=== PATIENT | female | born 1990 | race Caucasian/White ===

== ENCOUNTER 2025-03-29 11:16 | Outpatient (CLI) | payer OTHER, SELFPAY ==
--- NOTE | 2025-03-29 11:30 | CRLHL7_ITS ---
For Patients: As a result of the Cures Act, medical imaging exams and procedure reports are released immediately into your electronic medical record. You may view this report before your referring provider. If you have questions, please contact your health care provider. OB ULTRASOUND INDICATION: Dating. TECHNIQUE: Real time grayscale imaging of the fetus was performed. Transvaginal imaging performed to better evaluate the endometrial stripe and ovaries. LMP: 02/02/2025. VALARIE by LMP: 11/09/2025. GA: 7 w, 6 d. Previous US: No. CRL: 1.0 cm. 7 w 0 d. VALARIE: 11/15/2025. FHR: 147 BPM. Gestational sac: 2.3 cm. Appears within normal limits. Yolk sac: 3.5 mm. Appears within normal limits. Right ovary: Within normal limits. 3.4 x 2.6 x 2.5 cm. CL. Left ovary: Within normal limits. 2.2 x 1.4 x 1.2 cm. IMPRESSION: Single living intrauterine measuring 7 weeks 0 days and sonographic due date 11/15/2025. Roney Blake M.D. Diagnostic Radiologist [email or web address]/Dictated by: Roney Blake MD @ 03/29/2025 3:43:00 PM (Electronically Signed)
== END 2025-03-29 11:17 | disposition home or self-care (01) ==
PROVIDERS: PCP Family Medicine; Visit Provider Advanced Practice Midwife
DX: Z34.91 Encounter for supervision of normal pregnancy, unspecified, first trimester (principal); Z3A.01 Less than 8 weeks gestation of pregnancy
CPT/HCPCS: 76817; 82565; 82570; 83021; 84156; 84450; 84460; 84520; 86592; 86703; 86704; 86706; 86762; 86787; 86803; 86850; 86900; 86901; 87086; 87340

== ENCOUNTER 2025-04-01 11:07 | Outpatient (CLI) | payer OTHER, SELFPAY | END 2025-04-01 11:08 | disposition home or self-care (01) | LOC: NFLDREF 04-04 15:59 | PROVIDERS: PCP Family Medicine; Referring Provider Family Medicine; Visit Provider Advanced Practice Midwife | DX: Z34.81 Encounter for supervision of other normal pregnancy, first trimester (principal) | CPT/HCPCS: 82570; 84156 ==

== ENCOUNTER 2025-04-26 10:44 | Outpatient (CLI) | payer OTHER, SELFPAY | END 2025-04-26 10:45 | disposition home or self-care (01) | LOC: NFLDREF 04-28 17:24 | PROVIDERS: PCP Family Medicine; Referring Provider Family Medicine; Visit Provider Obstetrics & Gynecology | DX: Z34.81 Encounter for supervision of other normal pregnancy, first trimester (principal) | CPT/HCPCS: 87491; 87591 ==

== ENCOUNTER 2025-06-20 10:05 | Outpatient (CLI) | payer OTHER, SELFPAY | END 2025-06-20 10:06 | disposition home or self-care (01) | LOC: NFLDREF 06-23 16:47 | PROVIDERS: PCP Family Medicine; Referring Provider Family Medicine; Visit Provider Obstetrics & Gynecology | DX: O12.10 Gestational proteinuria, unspecified trimester (principal) | CPT/HCPCS: 82570; 84156 ==

== ENCOUNTER 2025-08-24 10:01 | Outpatient (CLI) | payer OTHER, SELFPAY ==
--- NOTE | 2025-08-24 10:15 | CRLHL7_ITS ---
For Patients: As a result of the Cures Act, medical imaging exams and procedure reports are released immediately into your electronic medical record. You may view this report before your referring provider. If you have questions, please contact your health care provider. OB ULTRASOUND VALARIE by US: 11/15/2025. GA: 28 w, 1 d. Single. Comparison: None. INDICATION: Pre-existing hypertension. TECHNIQUE: Real time grayscale imaging of the fetus was performed. Transabdominal. CERVIX: Not visualized. POSITIONING: Vertex. AMNIOTIC FLUID: 21.3 cm RENATA. 7.5 cm. SDP (N: greater than 2 x 1 cm) PLACENTA: Technique: Transabdominal. PLACENTA POSITION: Anterior. DOPPLER: heart rate: 167 bpm. BIOMETRY: BPD: 7.3 cm. 29 w, 1 d, 72%. HC: 27.3 cm. 29 w, 6 d, 72%. AC: 27.7 cm. 31 w, 5 d, >97%. FL: 5.4 cm. 28 w, 4 d, 47%. FL/AC ratio: 19.48%. HC/AC ratio: 0.99. EFW: 1558g. Weight: 3 lbs., 7 oz. age by this US: 29 w, 6 d. VALARIE by this US: 11/03/2025. Percentile by VALARIE: >97%. IMPRESSION: 1. Sonographic gestational age 29 weeks 6 days and sonographic due date 11/03/2025. Sonographic age is 12 days ahead of the clinical age. 2. Estimated weight greater than 97th percentile. Abdominal circumference greater than 97th percentile. Roney Blake M.D. Diagnostic Radiologist [email or web address]/Dictated by: Roney Blake MD @ 08/24/2025 2:03:00 PM (Electronically Signed)
== END 2025-08-24 10:02 | disposition home or self-care (01) ==
LOC: US 10:02
PROVIDERS: PCP Family Medicine; Visit Provider Obstetrics & Gynecology
DX: O10.913 Unspecified pre-existing hypertension complicating pregnancy, third trimester (principal); O36.63X0 Maternal care for excessive fetal growth, third trimester, not applicable or unspecified; Z3A.28 28 weeks gestation of pregnancy
CPT/HCPCS: 76815

== ENCOUNTER 2025-08-24 10:47 | Outpatient (CLI) | payer OTHER, SELFPAY | END 2025-08-24 10:48 | disposition home or self-care (01) | PROVIDERS: PCP Family Medicine; Visit Provider Obstetrics & Gynecology | DX: O10.913 Unspecified pre-existing hypertension complicating pregnancy, third trimester (principal); Z3A.28 28 weeks gestation of pregnancy | CPT/HCPCS: 82570; 84156; 84450; 84460; 86592 ==

== ENCOUNTER 2025-08-25 09:35 | Outpatient (CLI) | payer OTHER, SELFPAY | END 2025-08-25 09:36 | disposition home or self-care (01) | PROVIDERS: PCP Family Medicine; Visit Provider Obstetrics & Gynecology | DX: O10.919 Unspecified pre-existing hypertension complicating pregnancy, unspecified trimester (principal) | CPT/HCPCS: 82565; 84450; 84460; 84520 ==

== ENCOUNTER 2025-08-26 15:15 | Outpatient (CLI) | payer OTHER, SELFPAY | END 2025-08-26 15:16 | disposition home or self-care (01) | LOC: NFLDREF 08-31 19:26 | PROVIDERS: PCP Family Medicine; Referring Provider Family Medicine; Visit Provider Obstetrics & Gynecology | DX: O12.13 Gestational proteinuria, third trimester (principal) | CPT/HCPCS: 82570; 84156 ==

== ENCOUNTER 2025-09-01 09:54 | Outpatient (CLI) | payer OTHER, SELFPAY | END 2025-09-01 09:55 | disposition home or self-care (01) | LOC: NFLDREF 09-07 02:06 | PROVIDERS: PCP Family Medicine; Referring Provider Family Medicine; Visit Provider Obstetrics & Gynecology | DX: O11.3 Pre-existing hypertension with pre-eclampsia, third trimester (principal) | CPT/HCPCS: 84450; 84460 ==

== ENCOUNTER 2025-09-06 10:34 | Outpatient (CLI) | payer OTHER, SELFPAY ==
--- NOTE | 2025-09-06 10:45 | CRLHL7_ITS ---
For Patients: As a result of the Century Cures Act, medical imaging exams and procedure reports are released immediately into your electronic medical record. You may view this report before your referring provider. If you have questions, please contact your health care provider. INDICATION: Pre-existing Hypertension COMPARISON: Obstetric ultrasound on 08/24/2025 TECHNIQUE: Obstetrical ultrasound, transabdominal approach, biophysical profile exam FINDINGS: number: 1 Position: Cephalic. Placental Position: Anterior. Amniotic fluid: DVP 7.1 cm. Cervix: Not visualized. heart rate: 149 bpm. BPP Score: Fluid: 2 Breathin Movement: 2 Tone: 2 Total: 6 IMPRESSION: Biophysical profile exam score of 6/8 with no points for breathing movements. Dictated by John Paul Franklin MD @ 09/06/2025 11:56:22 AM (Electronically Signed)
== END 2025-09-06 10:35 | disposition home or self-care (01) ==
LOC: US 10:36
PROVIDERS: PCP Family Medicine; Visit Provider Obstetrics & Gynecology
DX: O10.919 Unspecified pre-existing hypertension complicating pregnancy, unspecified trimester (principal)
CPT/HCPCS: 76819

== ENCOUNTER 2025-09-13 11:55 | Outpatient (CLI) | payer OTHER, SELFPAY | END 2025-09-13 11:56 | disposition home or self-care (01) | LOC: NFLDREF 09-18 01:46 | PROVIDERS: PCP Family Medicine; Referring Provider Family Medicine; Visit Provider Obstetrics & Gynecology | DX: O13.3 Gestational [pregnancy-induced] hypertension without significant proteinuria, third trimester (principal); Z3A.31 31 weeks gestation of pregnancy | CPT/HCPCS: 82565; 82570; 84156; 84450; 84460; 84520 ==

== ENCOUNTER 2025-09-13 12:03 | Outpatient (CLI) | payer OTHER, SELFPAY ==
--- NOTE | 2025-09-13 12:15 | CRLHL7_ITS ---
For Patients: As a result of the Cures Act, medical imaging exams and procedure reports are released immediately into your electronic medical record. You may view this report before your referring provider. If you have questions, please contact your health care provider. OB ULTRASOUND BIOPHYSICAL PROFILE CLINICAL HISTORY: Pre-existing hypertension w/pre-eclampsia. TECHNIQUE: Real time lira scale imaging of the fetus was performed. Transabdominal imaging performed. COMPARISON: 09/06/2025, 08/24/2025, 03/29/2025. FINDINGS: VALARIE by US: 11/15/2025. GA: 31 weeks 0 days. Gestation: Single. Cervix: Not visualized. Positioning: Vertex. Amniotic Fluid: 6.0 cm SDP. BIOPHYSICAL PROFILE Gross Body Movements: 2 Tone: 2 Respiratory Activity: 2 Amniotic Fluid SDP: 2 Total Score: 8 Placenta: Technique: TA. Placenta Position: Anterior. Dopplers: Heart Rate: 155 bpm. IMPRESSION: Normal biophysical profile score of 8/8. Roney Blake M.D. Diagnostic Radiologist [email or web address] Transcribed: 3:40 pm DW/Dictated by: Roney Blake MD @ 09/13/2025 12:51:00 PM (Electronically Signed)
== END 2025-09-13 12:04 | disposition home or self-care (01) ==
LOC: US 12:03
PROVIDERS: PCP Family Medicine; Visit Provider Obstetrics & Gynecology
DX: O11.3 Pre-existing hypertension with pre-eclampsia, third trimester (principal); Z3A.31 31 weeks gestation of pregnancy
CPT/HCPCS: 76819

== ENCOUNTER 2025-09-15 13:50 | Outpatient (CLI) | payer OTHER, SELFPAY | END 2025-09-15 13:51 | disposition home or self-care (01) | LOC: NFLDREF 09-22 02:29 | PROVIDERS: PCP Family Medicine; Referring Provider Family Medicine; Visit Provider Obstetrics & Gynecology | DX: O11.3 Pre-existing hypertension with pre-eclampsia, third trimester (principal) | CPT/HCPCS: 82565; 82570; 84156; 84450; 84460; 84520 ==

== ENCOUNTER 2025-09-19 09:05 | Outpatient (CLI) | payer OTHER, SELFPAY | END 2025-09-19 09:06 | disposition home or self-care (01) | LOC: NFLDREF 09-23 10:32 | PROVIDERS: PCP Family Medicine; Referring Provider Family Medicine; Visit Provider Obstetrics & Gynecology | DX: O11.3 Pre-existing hypertension with pre-eclampsia, third trimester (principal); Z3A.31 31 weeks gestation of pregnancy | CPT/HCPCS: 82565; 82570; 84156; 84450; 84460; 84520 ==

== ENCOUNTER 2025-09-19 09:12 | Outpatient (CLI) | payer OTHER, SELFPAY ==
--- NOTE | 2025-09-19 09:15 | CRLHL7_ITS ---
For Patients: As a result of the Cures Act, medical imaging exams and procedure reports are released immediately into your electronic medical record. You may view this report before your referring provider. If you have questions, please contact your health care provider. OB ULTRASOUND VALARIE by US: 11/15/2025. GA: 31w, 6 d. Single. Comparison: Ultrasound 09/13/2025, 09/06/2025, 08/24/2025. INDICATION: . Pre-existing hypertension. TECHNIQUE: Real time grayscale imaging of the fetus was performed. Transabdominal. CERVIX: Not visualized. POSITIONING: Vertex. AMNIOTIC FLUID: 6.8 cm. SDP (N: greater than 2 x 1 cm) BIOPHYSICAL PROFILE: 2: Gross body movements 2: tone 2: Respiratory activity 2: Amniotic fluid SDP (N: greater than 2 x 1 cm) 05/20: Total score PLACENTA: Technique: Transabdominal. PLACENTA POSITION: Anterior. DOPPLER: heart rate: 159 bpm. BIOMETRY: BPD: 8.3 cm. 33 w, 4 d, 85.7%. HC: 30.3 cm. 33 w, 5 d, 64.1%. AC: 30.1 cm. 34 w, 1 d, 95.4%. FL: 6.4 cm. 33 w, 2 d, 74.5%. FL/AC ratio: 21.4%. HC/AC ratio: 1.0. EFW: 2268g. Weight: 5 lbs., 0 oz. age by this US: 33 w, 5 d. VALARIE by this US: 11/02/2025. Percentile by VALARIE: 92.1%. IMPRESSION: 1 . The estimated weight is at the 92nd percentile for gestational age. 2. The biophysical profile score is normal 05/20. AARON CASIANO MD FACR Pediatric/Diagnostic Radiologist [facility] Transcribed: 12:12 p.m. [email or web address] jj/Dictated by: Aaron Casiano MD @ 09/19/2025 10:52:00 AM (Electronically Signed)
== END 2025-09-19 09:13 | disposition home or self-care (01) ==
LOC: US 09:13
PROVIDERS: PCP Family Medicine; Visit Provider Obstetrics & Gynecology
DX: O10.913 Unspecified pre-existing hypertension complicating pregnancy, third trimester (principal); Z3A.33 33 weeks gestation of pregnancy
CPT/HCPCS: 76816; 76819

== ENCOUNTER 2025-09-26 09:07 | Outpatient (CLI) | payer OTHER, SELFPAY | END 2025-09-26 09:08 | disposition home or self-care (01) | LOC: NFLDREF 09-29 11:41 | PROVIDERS: PCP Family Medicine; Referring Provider Family Medicine; Visit Provider Obstetrics & Gynecology | DX: O10.913 Unspecified pre-existing hypertension complicating pregnancy, third trimester (principal) | CPT/HCPCS: 82565; 82570; 84156; 84450; 84460; 84520 ==

== ENCOUNTER 2025-09-26 09:11 | Outpatient (CLI) | payer OTHER, SELFPAY ==
--- NOTE | 2025-09-26 09:15 | CRLHL7_ITS ---
For Patients: As a result of the Cures Act, medical imaging exams and procedure reports are released immediately into your electronic medical record. You may view this report before your referring provider. If you have questions, please contact your health care provider. OB ULTRASOUND VALARIE by US: 11/15/2025. GA: 32 w, 6 d. Single. Comparison: 09/19/2025, 09/13/2025, 09/06/2025. INDICATION: Chronic hypertension. TECHNIQUE: Real time grayscale imaging of the fetus was performed. Transabdominal. CERVIX: Not visualized. POSITIONING: Vertex. AMNIOTIC FLUID: 6.3 cm. SDP (N: greater than 2 x 1 cm) BIOPHYSICAL PROFILE: 2: Gross body movements 2: tone 2: Respiratory activity 2: Amniotic fluid SDP (N: greater than 2 x 1 cm) 8/8: Total score PLACENTA: Technique: Transabdominal. PLACENTA POSITION: Anterior. DOPPLER: heart rate: 142 bpm. IMPRESSION: Normal biophysical profile score 8/8. Roney Blake M.D. Diagnostic Radiologist [email or web address]/Dictated by: Roney Blake MD @ 09/26/2025 10:20:00 AM (Electronically Signed)
== END 2025-09-26 09:12 | disposition home or self-care (01) ==
LOC: US 09:11
PROVIDERS: PCP Family Medicine; Visit Provider Obstetrics & Gynecology
DX: O10.013 Pre-existing essential hypertension complicating pregnancy, third trimester (principal); Z3A.32 32 weeks gestation of pregnancy
CPT/HCPCS: 76819

== ENCOUNTER 2025-10-03 10:05 | Outpatient (CLI) | payer OTHER, SELFPAY | END 2025-10-03 10:06 | disposition home or self-care (01) | LOC: NFLDREF 10-08 02:41 | PROVIDERS: PCP Family Medicine; Referring Provider Family Medicine; Visit Provider Obstetrics & Gynecology | DX: O10.913 Unspecified pre-existing hypertension complicating pregnancy, third trimester (principal) | CPT/HCPCS: 82565; 82570; 84156; 84450; 84460; 84520 ==

== ENCOUNTER 2025-10-03 10:10 | Outpatient (CLI) | payer OTHER, SELFPAY ==
--- NOTE | 2025-10-03 10:15 | CRLHL7_ITS ---
For Patients: As a result of the Cures Act, medical imaging exams and procedure reports are released immediately into your electronic medical record. You may view this report before your referring provider. If you have questions, please contact your health care provider. OB ULTRASOUND BIOPHYSICAL PROFILE TRANSABDOMINAL Clinical History: VALARIE by US: 11/15/2025. GA: 33 w, 6 d. Single. INDICATION: Chronic maternal HYPERTENSION. TECHNIQUE: Real time lira scale imaging of the fetus was performed. Transabdominal imaging performed. CERVIX: Not visualized. POSITIONING: Vertex. AMNIOTIC FLUID: 5.3 cm SDP (N: greater than 2 x 1 cm) BIOPHYSICAL PROFILE: Gross body movements: 2. tone: 2. Respiratory activity: 2. Amniotic fluid: 2. SDP (N: greater than 2 x 1 cm). Total score: 8. PLACENTA: Technique: Transabdominal. PLACENTA POSITION: Anterior. DOPPLER: heart rate: 169 bpm. IMPRESSION: Normal biophysical profile 05/20. Roney Blake M.D. Diagnostic Radiologist [email or web address] SP/Dictated by: Roney Blake MD @ 10/03/2025 5:54:00 PM (Electronically Signed)
== END 2025-10-03 10:11 | disposition home or self-care (01) ==
LOC: US 10:10
PROVIDERS: PCP Family Medicine; Visit Provider Obstetrics & Gynecology
DX: O10.013 Pre-existing essential hypertension complicating pregnancy, third trimester (principal); Z3A.33 33 weeks gestation of pregnancy; O09.893 Supervision of other high risk pregnancies, third trimester
CPT/HCPCS: 76819

== ENCOUNTER 2025-10-10 09:14 | Outpatient (CLI) | payer OTHER, SELFPAY | END 2025-10-10 09:15 | disposition home or self-care (01) | LOC: NFLDREF 10-15 21:24 | PROVIDERS: PCP Family Medicine; Referring Provider Family Medicine; Visit Provider Obstetrics & Gynecology | DX: O10.913 Unspecified pre-existing hypertension complicating pregnancy, third trimester (principal); Z3A.34 34 weeks gestation of pregnancy | CPT/HCPCS: 82565; 82570; 84156; 84450; 84460; 84520 ==

== ENCOUNTER 2025-10-10 09:17 | Outpatient (CLI) | payer OTHER, SELFPAY ==
--- NOTE | 2025-10-10 09:15 | CRLHL7_ITS ---
For Patients: As a result of the Cures Act, medical imaging exams and procedure reports are released immediately into your electronic medical record. You may view this report before your referring provider. If you have questions, please contact your health care provider. OB ULTRASOUND BIOPHYSICAL PROFILE CLINICAL HISTORY: Pre-existing HTN. TECHNIQUE: Real time lira scale imaging of the fetus was performed. Transabdominal imaging performed. COMPARISON: 10/03/2025, 09/26/2025, 09/19/2025, 09/13/2025, , 08/24/2025, 03/29/2025. FINDINGS: VALARIE by US: 11/15/2025. GA: 34 weeks 6 days. Gestation: Single. Cervix: Not visualized. Position: Vertex. Amniotic Fluid: 5.4 cm SDP. BIOPHYSICAL PROFILE Gross Body Movements: 2 Tone: 2 Respiratory Activity: 2 Amniotic Fluid SDP: 2 Total Score: 8 Placenta: Technique: TA. Placenta Position: Anterior. Dopplers: Heart Rate: 157 bpm. IMPRESSION: Normal biophysical profile score of 8/8. Roney Blake M.D. Diagnostic Radiologist [email or web address] Transcribed: 11:57 am DW/Dictated by: Roney Blake MD @ 10/10/2025 9:55:00 AM (Electronically Signed)
== END 2025-10-10 09:18 | disposition home or self-care (01) ==
LOC: US 09:17
PROVIDERS: PCP Family Medicine; Visit Provider Obstetrics & Gynecology
DX: O10.913 Unspecified pre-existing hypertension complicating pregnancy, third trimester (principal); Z3A.34 34 weeks gestation of pregnancy
CPT/HCPCS: 76819